=== PATIENT | female | born 1985 | race Caucasian/White ===

== ENCOUNTER → 2017-03-26 | Outpatient (CLI) | payer BC ==
--- NOTE | 2017-03-27 04:55 | RAD ---
Examination: XR FINGERS dated 03/26/2017 8:43 AM AMBULANCE OFFICER History: PAIN IN LEFT FINGER Comparison: None Technique: Three views of the left thumb FINDINGS AND IMPRESSION: There is no acute fracture or dislocation of the left first digit. Alignment is anatomic. No radiopaque foreign bodies. Electronically signed by: Dequan Lundberg MD 03/27/2017 4:53 AM AMBULANCE OFFICER
--- NOTE | 2017-03-27 04:56 | RAD ---
Examination: XR HAND 3 OR MORE VIEWS dated 03/26/2017 8:43 AM MINISTER ASSISTANT History: PAIN IN LEFT HAND Comparison: None Technique: Three views of the left hand FINDINGS AND IMPRESSION: There is no acute fracture or dislocation of the left hand. Alignment is anatomic. Joint spaces are well-preserved. Electronically signed by: Dequan Lundberg MD 03/27/2017 4:54 AM MINISTER ASSISTANT
== END | disposition home or self-care (01) ==
LOC: RAD 08:35
PROVIDERS: ATTEND Orthopaedic Surgery
DX: M79.642 Pain in left hand (principal)